=== PATIENT | male | born 1985 | race African-American/Black ===

== ENCOUNTER 2022-07-06 15:45 | Emergency (ER) | payer OTHER, SELFPAY ==
[2022-07-06 15:59] VITALS: BP 162/90; PULSE 84; RESP 14; TEMP 36.8; O2SAT 97; BMI 29.2
--- NOTE | 2022-07-06 16:29 | XRR_ITS ---
PROCEDURE INFORMATION: Exam: XR Left Hand Exam date and time: 07/06/2022 4:35 PM Age: 37 years old Clinical indication: Pain; Hand; Left; Patient HX: 4th finger; Additional info: Cut finger with saw TECHNIQUE: Imaging protocol: Radiologic exam of the Left hand. Views: 3 or more views. COMPARISON: No relevant prior studies available. FINDINGS: Bones/joints: No acute fracture dislocation. No obvious osseous amputation defect. Soft tissues: Probably soft tissue defect at the medial tip of the 4th digit compatible with provided history. Other findings: Three views submitted. XR/XR hand LT min 3V* [id number] IMPRESSION: No acute fracture dislocation.
--- NOTE | 2022-07-06 17:11 | ED_ITS ---
HPI - Extremity Problem General: Chief complaint: Extremity Injury, Upper Stated complaint: finger lac Time Seen by Provider: 07/06/22 17:11 Source: patient Mode of arrival: ambulatory Limitations: no limitations History of Present Illness: Patient presents to the ER today for evaluation and treatment of injury to his left 4th distal fingerpad from a saw while at work today. Patient states he went to an [facility] but was sent to the ER due to they type of wound he had. He states he may have had a tetanus update this year but isnt sure. He still has senation to the lateral portion of the finger b ut has some dulled sensation to the medial aspect along the side of the nail. Review of Systems General: Reports: 10 or more systems reviewed and unremarkable except in HPI and below Const: Reports: other (No fever, chills, body aches or fatigue) ENMT: Reports: other (No sore throat, ear pain, nasal congestion, or rhinorrhea) Card: Reports: other (No chest pain, palpitations, or syncope) GI: Reports: other (No nausea/vomiting, diarrhea, or abdominal pain) Musc: Reports: back pain, extremity pain, joint pain and other (Myalgia) Skin/Breast: Reports: other (Reports injury (abrasion/laceration)) PFSH ED Supplemental PFSH Information: chart review showed no acute PMH Physical Exam Const: COMMON NORMALS: no acute distress, patient oriented x3, no limitations and alert GENERAL APPEARANCE: cooperative, comfortable and well kempt ORIENTATION/CONSCIOUSNESS: Yes awake, Yes oriented to person, Yes oriented to place and Yes oriented to time HENMT: COMMON NORMALS: normocephalic, atraumatic, hearing grossly normal bilaterally, Normal nasal mucous membranes and turbinates present and moist oral mucous membranes HEAD & SCALP: normocephalic and atraumatic NOSE: Normal nasal mucous membranes and turbinates present Eye: COMMON NORMALS: Equal, round and reactive pupils present, EOMs intact bilaterally and conjunctivae normal CONJUNCTIVA: Yes conjunctivae normal PUPIL: Yes Equal, round and reactive pupils present Resp: COMMON NORMALS: normal respiratory effort and No use of accessory muscles Cardio: COMMON NORMALS: regular rate RATE: regular rate Extremity: COMMON NORMALS: normal to inspection and full ROM Neuro: COMMON NORMALS: patient oriented x3 SENSORIUM/ORIENTATION: Yes alert, Yes oriented to person, Yes oriented to place and Yes oriented to time Psych: APPEARANCE: Yes well kempt Skin: COMMON NORMALS: no rashes or lesions noted, turgor normal and no petechiae GENERAL SKIN EXAM: no rashes or lesions noted and turgor normal WOUNDS: Yes wounds noted OTHER: Patient has large area of soft tissue loss to the fingerpad of the left 4th digit without damage to the nail. No active bleeding and no visible bone within the wound. No linear laceration or flap wound noted. Procedures Laceration Laceration 1: Site: hand (4th digit finger pad) Side (If applicable): left Size (cm): 1 Description: irregular Depth: involves muscle layer Skin layer closed with: other (unable to suture- wound care with secondary intention) Course Vital Signs: Vital signs: Vital Signs Temperature 98.3 F 07/06/22 15:59 Pulse Rate 84 07/06/22 15:59 Respiratory Rate 14 07/06/22 15:59 Blood Pressure 162/90 07/06/22 15:59 Pulse Oximetry 97 07/06/22 15:59 Oxygen Delivery Me thod 07/06/22 15:59 MDM - Extremity (Nontraumatic) Medical Decision Making Patient was seen and evaluated for injury to his left 4th digit. Patient sustained tissue loss of the finger pad without injury to the nail. Bleeding was controlled with direct pressure and xray appeared NEG for any acute fracture based on my personal wet read. Patient received an updated tdap while in the ER today. Wound was cleaned with sterile saline and betadine. Patient had onset of bleeding after cleaning and we used a silver nitrate stick and pressure dressing for his wound. Discussed concerns for infection and patient was given a script for both topical antibiotics and oral as well as instructions for daily wound care. Jalil will need to follow up with his PCP or his employers occupational medicine provider of choice for wound checks until wound is healed. He was given return precautions for any signs of infection. Differential Diagnosis Unlikely herpes zoster, gout, cellulitis, superficial thrombophlebitis, deep venous thrombosis of upper extremity, lower extremity edema or deep vein thrombosis of lower extremity Lab Data Radiology Impressions Hand X-Ray 07/06/22 16:29 IMPRESSION: No acute fracture dislocation. Discharge Plan Discharge Patient Disposition: Home Clinical Impression: Laceration of finger of left hand without damage to nail Condition: Stable Prescriptions: New doxycycline hyclate 100 mg tablet 100 mg PO BID 10 Days Qty: 20 0RF mupirocin 2 % ointment 1 applic topical BID Qty: 15 0RF Rx Instructions: apply twice a day to wound with bandage changes Discharge Orders: Discharge ED (Routine); Ordered 07/06/22 Ordered By: Monik Enamorado Patient Instructions: Opioid Safety, Pain Management Activity Restrictions/Additional Instructions: Patient needs to keep his wound clean and dry at all times. For the next 24 hours, leave the pressure dressing in place. We did apply a silver nitrate stick for chemical cautery to help with the bleeding. After 24 hours of pressure dressing, you may notice that there is a discoloration to your finger from the silver nitrate. This is normal. Gently clean your finger with warm water and mild soap once or twice a day, every day until healed. We recommend applying clean, new bandaging. I have provided you mupirocin topical ointment which you should apply topically to your wound with each bandage change. I have also provided you an oral antibiotic which you should take as prescribed in its entirety as well. You should follow-up with your occupational medicine doctor through your employer for a wound check in 48 hours. You may require multiple wound checks until completely healed. If for any reason you have concerns for infection need to be seen and reevaluated. Coding Level of Care Code ED [employer] for [employer] Exam Detailed
[2022-07-06] MEDS: tetanus-dipt-pertussis 0.5 mL SDV IM (17:33)
[2022-07-06] MEDS: silver nitrate applicator 1 EACH TOPICAL (18:08)
[2022-07-06] MEDS: mupirocin oint 22 gm 1 APPLIC TOPICAL (18:08)
[2022-07-06] MEDS: ibuprofen 800 mg tablet PO (18:40)
== END 2022-07-06 18:44 | disposition home or self-care (01) ==
PROVIDERS: Emergency Provider Physician Assistant
DX: S61.215A Laceration without foreign body of left ring finger without damage to nail, initial encounter (principal); W27.0XXA Contact with workbench tool, initial encounter; Z23 Encounter for immunization
CPT/HCPCS: 73130; 90471; 90715; 99283